=== PATIENT | male | born 1960 | race Caucasian/White ===

== ENCOUNTER → 2018-08-19 | Outpatient (CLI) | payer MEDICAID | END | disposition home or self-care (01) | LOC: PETCFH 11:44 | PROVIDERS: ATTEND Internal Medicine Gastroenterology | DX: K76.89 Other specified diseases of liver (principal); J44.9 Chronic obstructive pulmonary disease, unspecified; Q61.2 Polycystic kidney, adult type | CPT/HCPCS: 78227; A9537 ==

== ENCOUNTER → 2018-11-12 | Outpatient (CLI) | payer MEDICAID | END | disposition home or self-care (01) | LOC: PETCFH 09:42 | PROVIDERS: ATTEND Physician Assistant | DX: K29.70 Gastritis, unspecified, without bleeding (principal); Q61.2 Polycystic kidney, adult type; N28.89 Other specified disorders of kidney and ureter | CPT/HCPCS: 78264; A9541 ==

== ENCOUNTER 2020-01-23 12:29 | Emergency (ER) | payer MEDICAID ==
[~2020-01-23] VITALS: Ht 180.3 cm; Wt 68.3 kg
[~2020-01-23 12:29] MED LIST: ASCO500C2 PO; ASPI-515 PO; BUDE10.2 INH; CHOL200040 PO; DOXY100C15 PO; DOXY100C2 PO; FLUT1AER INH; GUAI200T37 PO; PRED20TA PO; TAMS-11 PO; TIOT4MIS2 INH; ZINC25CA PO
[2020-01-23 12:36] VITALS: BP 135/73
--- NOTE | 2020-01-23 13:00 | NUR ---
PT CAME IN CO OF CHEST PAIN, SOB, AND CHEST TIGHTNESS THAT STARTED FRIDAY. PT SAYS IT GETS WORSE WITH ACTIVITY. PT HAS HX OF COPD BUT DOEST NOT USE HOME O2. EKG COMPLETE. PT CONNECTED TO MONITORING EQUIPMENT. PROVIDER IS BEDSIDE FOR ASSESSMENT
[2020-01-23 13:24] LABS: BASOPHILS # (AUTO) 0.05 x10^3/uL (0-0.1); BASOPHILS % (AUTO) 1 % (0-1); EOSINOPHILS # (AUTO) 0.18 x10^3/uL (0-0.4); EOSINOPHILS % (AUTO) 2 % (1-7); LYMPHOCYTES # (AUTO) 1.34 x10^3/uL (1-3.4); LYMPHOCYTES % (AUTO) 16 % (22-44); MD NO; MEAN CORPUSCULAR HEMOGLOBIN 32.5 pg (27.5-34.5); MEAN CORPUSCULAR HGB CONC 33.8 g/dL (33.2-36.2); MEAN PLATELET VOLUME 9.1 fL (7.4-10.4); MONOCYTES # (AUTO) 0.67 x10^3/uL (0.2-0.8); MONOCYTES % (AUTO) 8 % (2-9); NEUTROPHILS # (AUTO) 6.26 x10^3/uL (1.8-6.8); NEUTROPHILS % (AUTO) 74 % (42-75); PLATELET COUNT 179 x10^3/uL (130-400); RED BLOOD COUNT 4.53 x10^6/uL (4.38-5.82); RED CELL DISTRIBUTION WIDTH 13.7 % (9.4-14.8)
[2020-01-23] MEDS ORDERED: ALBUTEROL/IPRATROPIUM 2.5MG/0.5MG, 3 ML NPPB ONE (13:30)
[2020-01-23 13:38] LABS: ALANINE AMINOTRANSFERASE 17 U/L (12-78); ALBUMIN 3.1 g/dL (3.4-5.0); ANION GAP 5 mmol/L (5-15); CALCIUM 7.9 mg/dL (8.5-10.1); CHLORIDE 111 mmol/L (98-107); CREATININE 1.46 mg/dL (0.7-1.3)
[2020-01-23 13:42] LABS: ALKALINE PHOSPHATASE 41 U/L (45-117); BILIRUBIN,TOTAL 0.5 mg/dL (0.2-1.0); TOTAL PROTEIN 5.8 g/dL (6.4-8.2); TROPONIN I < 0.015 ng/mL (0.000-0.045)
[2020-01-23] MEDS ORDERED: ALBUTEROL/IPRATROPIUM 2.5MG/0.5MG, 3 ML ONE (13:50)
--- NOTE | 2020-01-23 13:59 | NUR ---
PT GETTING BREATHING TREATMENT AT THIS TIME. PT TOLERATING WELL
== END 2020-01-23 14:40 | disposition home or self-care (01) ==
LOC: ED 14:39
DX: J44.1 Chronic obstructive pulmonary disease with (acute) exacerbation (principal); I51.7 Cardiomegaly; R07.89 Other chest pain; I48.91 Unspecified atrial fibrillation
CPT/HCPCS: 36415; 71046; 80053; 83880; 84484; 85025; 93005; 94640; 99285; J7512

== ENCOUNTER 2020-02-04 12:33 | Inpatient (IN) | payer MEDICAID ==
[~2020-02-04] VITALS: Ht 180.3 cm; Wt 78.8 kg
--- NOTE | 2020-02-04 13:27 | NUR ---
PT AMBULATORY WITH STEADY GAIT, TO RM FROM [facility] AT THIS TIME
[2020-02-04] MEDS ORDERED: SODIUM CHLORIDE FLUSH 10ML SYR IVF ONE (13:30)
[2020-02-04] MEDS ORDERED: SODIUM CHLORIDE 0.9% 1,000ML IVBOLUS ONE (13:30)
[2020-02-04] MEDS ORDERED: FAMOTIDINE 20 MG/2 ML IVPush ONE (13:30)
[2020-02-04] MEDS ORDERED: PANTOPRAZOLE 40 MG IV IVPush ONE (13:30)
[2020-02-04] MEDS ORDERED: FAMOTIDINE 20 MG/2 ML ONE (13:36)
[2020-02-04] MEDS ORDERED: PANTOPRAZOLE 40 MG IV ONE (13:38)
[2020-02-04 14:10] LABS: BASOPHILS # (AUTO) 0.03 x10^3/uL (0-0.1); BASOPHILS % (AUTO) 0 % (0-1); EOSINOPHILS # (AUTO) 0.17 x10^3/uL (0-0.4); EOSINOPHILS % (AUTO) 1 % (1-7); LYMPHOCYTES # (AUTO) 1.67 x10^3/uL (1-3.4); LYMPHOCYTES % (AUTO) 13 % (22-44); MD NO; MEAN CORPUSCULAR HGB CONC 33.5 g/dL (33.2-36.2); MEAN CORPUSCULAR VOLUME 95.7 fL (81-97); MEAN PLATELET VOLUME 9.1 fL (7.4-10.4); MONOCYTES # (AUTO) 0.62 x10^3/uL (0.2-0.8); MONOCYTES % (AUTO) 5 % (2-9); NEUTROPHILS % (AUTO) 81 % (42-75); PLATELET COUNT 193 x10^3/uL (130-400); RED BLOOD COUNT 4.72 x10^6/uL (4.38-5.82); RED CELL DISTRIBUTION WIDTH 13.6 % (9.4-14.8)
[2020-02-04 14:16] LABS: ALANINE AMINOTRANSFERASE 18 U/L (12-78); ALBUMIN 3.4 g/dL (3.4-5.0); ANION GAP 8 mmol/L (5-15); CALCIUM 8.1 mg/dL (8.5-10.1); CHLORIDE 111 mmol/L (98-107); CREATININE 1.53 mg/dL (0.7-1.3)
[2020-02-04 14:19] LABS: ALKALINE PHOSPHATASE 40 U/L (45-117); BILIRUBIN,TOTAL 0.5 mg/dL (0.2-1.0); INTERNATIONAL NORMALIZED RATIO 0.95 (0.93-1.1); PROTHROMBIN TIME 9.8 Seconds (9.6-11.5); TOTAL PROTEIN 6.1 g/dL (6.4-8.2)
--- NOTE | 2020-02-04 14:45 | NUR ---
PIV INITIATED, LABS DRAWN. PT MEDICATED PER AUG.
[2020-02-04] MEDS: GUAIFENESIN 200 MG TABLET PO SCH ×2 (17:30→21:44)
[2020-02-04] MEDS ORDERED: hydrALAzine 20 MG/ML, 1ML IVPush PRN (17:30)
[2020-02-04] MEDS ORDERED: morphine SULFATE 10 MG/ML, 1ML IVPush PRN (17:30)
[2020-02-04] MEDS ORDERED: ONDANSETRON 2MG/ML, 2ML IVPush PRN (17:30)
[2020-02-04] MEDS ORDERED: PROMETHAZINE 25 MG/ML, 1ML IM PRN (17:30)
[2020-02-04] MEDS ORDERED: OXYcodone/APAP 5/325MG TABLET PO PRN (17:30)
[2020-02-04] MEDS ORDERED: LABETALOL 5MG/ML, 20ML IVPush PRN (17:30)
[2020-02-04] MEDS ORDERED: NICOTINE 14MG/24 HR PATCH.TD24 TD SCH (17:30)
[2020-02-04] MEDS ORDERED: ACETAMINOPHEN 325 MG TABLET PO PRN (17:30)
--- NOTE | 2020-02-04 18:31 | NUR ---
REPORT TO RECIEVING RN, AWAITING TRANSPORT
[2020-02-04] MEDS ORDERED: ZONI100C29 PO (18:45)
[2020-02-04] MEDS ORDERED: LISI2.5T PO (18:45)
[2020-02-04] MEDS ORDERED: AMLO10TA8 PO (18:45)
[2020-02-04] MEDS ORDERED: MONT10TA11 PO (18:45)
[2020-02-04] MEDS ORDERED: DIVA500T17 PO (18:45)
[2020-02-04] MEDS ORDERED: DILT240C82 PO (18:45)
[2020-02-04] MEDS: SODIUM CHLORIDE 0.9% 1,000 ML IV SCH (18:46)
[2020-02-04 18:57] VITALS: BP 135/72
[2020-02-04] MEDS ORDERED: FLUTICASONE/VILANTEROL 100-25MCG/INH INH SCH (21:00)
[2020-02-04] MEDS ORDERED: TAMSULOSIN 0.4 MG CAP.ER.24H PO SCH (21:00)
[2020-02-04] MEDS ORDERED: TIOTROPIUM BROMIDE 18 MCG/INH INH SCH (21:00)
[2020-02-04] MEDS ORDERED: CHOLECALCIFEROL 1,000 UNIT TABLET PO SCH (21:00)
[2020-02-04] MEDS ORDERED: FLUTICASONE/VILANTEROL 200-25MCG/INH INH SCH ×2 (21:00)
[2020-02-04] MEDS: PANTOPRAZOLE 40 MG IV IVPush SCH (21:44)
[2020-02-05] VITALS (10 sets, daily range): BP systolic 108–135; BP diastolic 60–72
[2020-02-05 03:20] LABS: BASOPHILS # (AUTO) 0.07 x10^3/uL (0-0.1); BASOPHILS % (AUTO) 1 % (0-1); EOSINOPHILS # (AUTO) 0.16 x10^3/uL (0-0.4); EOSINOPHILS % (AUTO) 1 % (1-7); LYMPHOCYTES % (AUTO) 17 % (22-44); MD NO; MEAN CORPUSCULAR HEMOGLOBIN 31.9 pg (27.5-34.5); MEAN CORPUSCULAR HGB CONC 33.3 g/dL (33.2-36.2); MEAN CORPUSCULAR VOLUME 95.9 fL (81-97); MEAN PLATELET VOLUME 8.9 fL (7.4-10.4); MONOCYTES # (AUTO) 0.96 x10^3/uL (0.2-0.8); MONOCYTES % (AUTO) 8 % (2-9); NEUTROPHILS # (AUTO) 8.76 x10^3/uL (1.8-6.8); NEUTROPHILS % (AUTO) 73 % (42-75); PLATELET COUNT 187 x10^3/uL (130-400); RED BLOOD COUNT 4.62 x10^6/uL (4.38-5.82)
[2020-02-05 03:28] LABS: ALANINE AMINOTRANSFERASE 14 U/L (12-78); ALBUMIN 2.8 g/dL (3.4-5.0); ANION GAP 5 mmol/L (5-15); CALCIUM 7.9 mg/dL (8.5-10.1); CHLORIDE 116 mmol/L (98-107); CREATININE 1.35 mg/dL (0.7-1.3)
[2020-02-05 03:30] LABS: ALKALINE PHOSPHATASE 41 U/L (45-117); BILIRUBIN,TOTAL 0.7 mg/dL (0.2-1.0); TOTAL PROTEIN 5.4 g/dL (6.4-8.2)
[2020-02-05] MEDS: GUAIFENESIN 200 MG TABLET PO SCH ×2 (05:12→10:19)
[2020-02-05] MEDS: SODIUM CHLORIDE 0.9% 1,000 ML IV SCH (05:32)
[2020-02-05] MEDS ORDERED: MIDAZOLAM 1 MG/ML, 2ML ONE (07:54)
[2020-02-05] MEDS ORDERED: FENTANYL PF 100 MCG/2ML ONE (07:55)
[2020-02-05] MEDS ORDERED: LABETALOL 5MG/ML, 20ML IV PRN (08:00)
[2020-02-05] MEDS ORDERED: morphine SULFATE 10 MG/ML, 1ML IVPush PRN (08:00)
[2020-02-05] MEDS ORDERED: hydrALAzine 20 MG/ML, 1ML IV PRN (08:00)
[2020-02-05] MEDS ORDERED: PROMETHAZINE 25 MG/ML, 1ML IVPush PRN (08:00)
[2020-02-05] MEDS ORDERED: OXYcodone 5 MG/5 ML ORAL.SOL UDC PO PRN (08:00)
[2020-02-05] MEDS ORDERED: FENTANYL PF 100 MCG/2ML IV PRN (08:00)
[2020-02-05] MEDS ORDERED: ONDANSETRON 2MG/ML, 2ML IVPush PRN (08:00)
[2020-02-05] MEDS ORDERED: CHLORHEXIDINE 15 ML UDC ONE (08:33)
[2020-02-05] MEDS ORDERED: MULTIVITAMINS/MINERALS TABLET PO SCH (09:00)
[2020-02-05] MEDS ORDERED: ZINC SULFATE 220 MG CAPSULE PO SCH (09:00)
[2020-02-05] MEDS ORDERED: THIAMINE 100MG TABLET PO SCH (09:00)
[2020-02-05] MEDS ORDERED: FOLIC ACID 1 MG TABLET PO SCH (09:00)
[2020-02-05] MEDS ORDERED: TIOTROPIUM BROMIDE 18 MCG/INH INH SCH (09:00)
[2020-02-05] MEDS: PANTOPRAZOLE 40 MG IV IVPush SCH (10:18)
[2020-02-05] MEDS ORDERED: LACTATED RINGERS 1,000 ML IV SCH (10:30)
[2020-02-05] MEDS ORDERED: PANT40TA5 PO (14:23)
== END 2020-02-05 15:15 | disposition home or self-care (01) | DRG 327 ==
LOC: ED 16:19 → EDIP 16:49 → 3N 18:27
PROVIDERS: ADMIT Internal Medicine; ATTEND Internal Medicine
PROC: 0D968ZZ Drainage of Stomach, Via Natural or Artificial Opening Endoscopic (ICD-10-PCS; 2020-02-05)
PROC: 0DB68ZX Excision of Stomach, Via Natural or Artificial Opening Endoscopic, Diagnostic (ICD-10-PCS; principal; 2020-02-05 09:00)
DX: K29.81 Duodenitis with bleeding (principal); Q61.3 Polycystic kidney, unspecified; Z20.828 Contact with and (suspected) exposure to other viral communicable diseases; D72.829 Elevated white blood cell count, unspecified; F17.210 Nicotine dependence, cigarettes, uncomplicated; G89.29 Other chronic pain; I12.9 Hypertensive chronic kidney disease with stage 1 through stage 4 chronic kidney disease, or unspecified chronic kidney disease; I48.91 Unspecified atrial fibrillation; J44.9 Chronic obstructive pulmonary disease, unspecified; K31.9 Disease of stomach and duodenum, unspecified; K59.00 Constipation, unspecified; N18.3 Chronic kidney disease, stage 3 (moderate); K76.89 Other specified diseases of liver; Z66 Do not resuscitate; Z79.82 Long term (current) use of aspirin; Z87.11 Personal history of peptic ulcer disease; Z80.9 Family history of malignant neoplasm, unspecified; Z79.899 Other long term (current) drug therapy
CPT/HCPCS: 36415; 96360; 99285; J3490; 74176; 80053; 85014; 85018; 85025; 85610; 85730; 86850; 86900; 87635; 88305; 93005; G0378; J2250; J3010; C9113; J7030; J7120

== ENCOUNTER 2020-07-27 11:26 | Observation (INO) | payer MEDICAID ==
[~2020-07-27] VITALS: Ht 180.3 cm; Wt 65.1 kg
[~2020-07-27 11:26] MED LIST changes: +AMLO-211 PO; -ASPI-515 PO; +ASPI-963 PO; +DILT240C82 PO; +DIVA500T17 PO; +LISI2.5T PO; +MONT10TA17 PO; +PANT40TA6 PO; +ZONI100C29 PO
--- NOTE | 2020-07-27 11:48 | NUR ---
PT C/O CHEST TIGHTNESS AND FATIGUE THAT STARTED YESTERDAY. PAIN 2. PT DENIES SOB OR HEADACHE. PT STATES HE FELT WEAK BEFORE AND HE WAS IN AFIB. PT SELF CONVERTED AT THAT TIME. PT RECENTLY RECEIVED A SHOT IN THE STOMACH BY HIS GI DOCTOR.
[2020-07-27] MEDS ORDERED: ASPIRIN 81 MG TABLET CHEW ONE (11:54)
[2020-07-27] MEDS ORDERED: NITROGLYCERIN SINGLE TAB 0.4 MG SL PRN (12:00)
[2020-07-27] MEDS ORDERED: ASPIRIN 81 MG TABLET CHEW PO ONE (12:00)
[2020-07-27 12:07] LABS: BASOPHILS % (AUTO) 1 % (0-1); EOSINOPHILS % (AUTO) 1 % (1-7); LYMPHOCYTES % (AUTO) 11 % (22-44); MEAN CORPUSCULAR HEMOGLOBIN 31.7 pg (27.5-34.5); MEAN PLATELET VOLUME 8.2 fL (7.4-10.4); MONOCYTES % (AUTO) 7 % (2-9); NEUTROPHILS % (AUTO) 81 % (42-75); PLATELET COUNT 235 x10^3/uL (130-400); RED BLOOD COUNT 4.49 x10^6/uL (4.38-5.82); RED CELL DISTRIBUTION WIDTH 13.1 % (9.4-14.8)
[2020-07-27 12:12] LABS: MD NO
[2020-07-27 12:16] LABS: ALBUMIN 3.8 g/dL (3.4-5.0); ANION GAP 6 mmol/L (5-15); CALCIUM 9.5 mg/dL (8.5-10.1); CHLORIDE 111 mmol/L (98-107)
--- NOTE | 2020-07-27 12:19 | NUR ---
BREAK RN: 20 GAUGE IV STARTED LEFT AC, NAZN, VSS, PATIENT STATES "I DON'T HAVE CHEST PAIN JUST MORE OF A PRESSURE." WARM BLANKET PROVIDED, CALL LIGHT WITHIN REACH, AT BEDSIDE. WAITING FOR TEST RESULTS.
[2020-07-27 12:23] LABS: ALANINE AMINOTRANSFERASE 15 U/L (12-78); ALKALINE PHOSPHATASE 54 U/L (45-117); CREATININE 1.79 mg/dL (0.7-1.3); TOTAL PROTEIN 6.6 g/dL (6.4-8.2); TROPONIN I < 0.015 ng/mL (0.000-0.045)
[2020-07-27] MEDS ORDERED: NITROGLYCERIN SINGLE TAB 0.4 MG SL ONE (12:35)
--- NOTE | 2020-07-27 12:48 | NUR ---
NO CHANGE IN CHEST PRESSURE FROM THE NTG. PAIN 07/26. BP 118/59, PULSE 60.
[2020-07-27] MEDS ORDERED: MAALOX/HYOSCYAMINE/LIDOCAINE 45 ML BTL PO ONE (14:00)
[2020-07-27] MEDS ORDERED: ACETAMINOPHEN 325 MG TABLET PO PRN (14:00)
[2020-07-27] MEDS ORDERED: POLYETHYLENE GLYCOL 17 GM PACKET PO PRN (14:00)
[2020-07-27] MEDS ORDERED: ONDANSETRON 2MG/ML, 2ML IVPush PRN (14:00)
[2020-07-27] MEDS ORDERED: ONDANSETRON ODT 4 MG PO PRN (14:00)
[2020-07-27] MEDS ORDERED: SENNA/DOCUSATE TABLET PO PRN (14:00)
[2020-07-27] MEDS ORDERED: ALBUTEROL HFA 90 MCG/SPRAY INH PRN (14:00)
[2020-07-27 14:08] VITALS: BP 119/66
[2020-07-27] MEDS: HEPARIN 5,000 UNITS/ML, 1ML SQ SCH ×2 (15:16→22:15)
[2020-07-27 18:30] LABS: TROPONIN I < 0.015 ng/mL (0.000-0.045)
[2020-07-27 20:00] VITALS: BP 103/62
[2020-07-27] MEDS ORDERED: ATORVASTATIN 40 MG TABLET PO SCH (21:00)
[2020-07-27] MEDS ORDERED: TAMSULOSIN 0.4 MG CAP.ER.24H PO SCH (21:00)
[2020-07-27] MEDS ORDERED: TIOTROPIUM BROMIDE 18 MCG/INH INH SCH (21:00)
[2020-07-27] MEDS ORDERED: ZONISAMIDE 50 MG CAPSULE PO SCH (21:00)
[2020-07-28 01:00] LABS: TROPONIN I < 0.015 ng/mL (0.000-0.045)
[2020-07-28 02:30] VITALS: BP 101/63
[2020-07-28 05:46] LABS: BASOPHILS % (AUTO) 1 % (0-1); EOSINOPHILS % (AUTO) 2 % (1-7); LYMPHOCYTES % (AUTO) 21 % (22-44); MEAN CORPUSCULAR HEMOGLOBIN 31.5 pg (27.5-34.5); MEAN CORPUSCULAR HGB CONC 33.8 g/dL (33.2-36.2); MEAN PLATELET VOLUME 8.5 fL (7.4-10.4); MONOCYTES % (AUTO) 10 % (2-9); NEUTROPHILS % (AUTO) 66 % (42-75); PLATELET COUNT 224 x10^3/uL (130-400); RED BLOOD COUNT 4.42 x10^6/uL (4.38-5.82); RED CELL DISTRIBUTION WIDTH 12.8 % (9.4-14.8)
[2020-07-28 05:48] LABS: MD NO
[2020-07-28 05:57] LABS: CHLORIDE 112 mmol/L (98-107)
[2020-07-28] MEDS ORDERED: ASPIRIN 81 MG TABLET EC PO SCH (06:00)
[2020-07-28] MEDS ORDERED: OMEPRAZOLE 20 MG CAPSULE.DR PO SCH (06:00)
[2020-07-28 06:05] LABS: ALANINE AMINOTRANSFERASE 16 U/L (12-78); ALBUMIN 3.4 g/dL (3.4-5.0); ALKALINE PHOSPHATASE 47 U/L (45-117); ANION GAP 8 mmol/L (5-15); BILIRUBIN,TOTAL 0.4 mg/dL (0.2-1.0); CALCIUM 8.6 mg/dL (8.5-10.1); CHOL/HDL RATIO 2.5; CHOLESTEROL, TOTAL 170 mg/dL (140-239); CREATININE 1.67 mg/dL (0.7-1.3); HDL CHOL % 40 % (26-37); HDL CHOLESTEROL (DIRECT) 68 mg/dL (40-60); LDL CHOLESTEROL,CALCULATED 80 mg/dL (54-169); LDL/HDL RATIO 1.2 (0.5-3.0); TRIGLYCERIDES 111 mg/dL (50-200); VLDL CHOLESTEROL 22 mg/dL (0-25)
[2020-07-28] MEDS: HEPARIN 5,000 UNITS/ML, 1ML SQ SCH ×2 (06:37→15:00)
[2020-07-28 08:20] VITALS: BP 121/70
[2020-07-28] MEDS ORDERED: DILTIAZEM 240 MG CAP.ER.24H PO SCH (09:00)
[2020-07-28] MEDS ORDERED: DIVALPROEX 500 MG TABLET.DR PO SCH (09:00)
[2020-07-28] MEDS ORDERED: FLUTICASONE/VILANTEROL 100-25MCG/INH INH SCH (09:00)
[2020-07-28] MEDS ORDERED: MONTELUKAST 10 MG TABLET PO SCH (09:00)
[2020-07-28] MEDS ORDERED: REGADENOSON 0.4 MG/5 ML SYRINGE ONE (09:57)
[2020-07-28 10:25] VITALS: BP 122/63
[2020-07-28] MEDS ORDERED: ATOR40TA78 PO (13:49)
[2020-07-28] MEDS ORDERED: ASPI81TA45 PO (13:50)
[2020-07-28 13:56] VITALS: BP 129/65
== END 2020-07-28 16:30 | disposition home or self-care (01) ==
LOC: ED 11:52 → INTOOBSV 12:35 → EDIP 12:35 → 5SO 13:54 → DCLOUNGE 07-28 16:21
PROVIDERS: ADMIT Hospitalist; ATTEND Family Medicine
DX: R07.89 Other chest pain (principal); D72.829 Elevated white blood cell count, unspecified; N18.30 Chronic kidney disease, stage 3 unspecified; I48.0 Paroxysmal atrial fibrillation; N40.0 Benign prostatic hyperplasia without lower urinary tract symptoms; J44.9 Chronic obstructive pulmonary disease, unspecified; Z86.73 Personal history of transient ischemic attack (TIA), and cerebral infarction without residual deficits; R25.1 Tremor, unspecified; D68.69 Other thrombophilia; E78.5 Hyperlipidemia, unspecified; Q61.3 Polycystic kidney, unspecified; F17.200 Nicotine dependence, unspecified, uncomplicated; Z79.899 Other long term (current) drug therapy; Z87.11 Personal history of peptic ulcer disease; Z79.82 Long term (current) use of aspirin; Z87.442 Personal history of urinary calculi
CPT/HCPCS: 36415; 71045; 78452; 80053; 80061; 83036; 83690; 83880; 84145; 84484; 85025; 93005; 93017; 93306; 93356; 96372; 99285; A9502; G0378; J1644; J2785

== ENCOUNTER 2020-08-12 13:48 | Emergency (ER) | payer MEDICAID ==
[~2020-08-12] VITALS: Ht 180.3 cm; Wt 69.6 kg
[~2020-08-12 13:48] MED LIST changes: +ASPI81TA45 PO; +ATOR40TA78 PO
--- NOTE | 2020-08-12 14:22 | NUR ---
PT COMES IN C/O SOB AND "MY HEART FEELS LIKE IT IS BEATING OUT OF MY CHEST. I FELT LIKE I HAD HIGH BLOOD PRESSURE". PT STATES FEELING OF LIGHTHEADEDNESS WHILE WALKING TO TRIAGE. PT HAS HX OF AFIB. MONITORS CONNECTED. WARM BLANKET PROVIDED. CALL LIGHT W/I REACH.
--- NOTE | 2020-08-12 14:24 | NUR ---
PROVIDER AT BEDSIDE FOR ASSESSMENT AND TO DISCUSS PLAN OF CARE
--- NOTE | 2020-08-12 14:25 | NUR ---
PT TO XRAY
--- NOTE | 2020-08-12 14:57 | NUR ---
PT RESTING ON GURNEY. STATE "A LITTLE BIT UNCOMFORTABLE IN MY MID STOMACH". VSS. NAD. CALL LIGHT W/IN REACH. WILL CONTINUE TO MONITOR
[2020-08-12 14:59] LABS: BASOPHILS % (AUTO) 1 % (0-1); EOSINOPHILS % (AUTO) 1 % (1-7); LYMPHOCYTES % (AUTO) 15 % (22-44); MEAN CORPUSCULAR HEMOGLOBIN 31.8 pg (27.5-34.5); MEAN CORPUSCULAR HGB CONC 33.9 g/dL (33.2-36.2); MEAN PLATELET VOLUME 8.2 fL (7.4-10.4); MONOCYTES % (AUTO) 8 % (2-9); NEUTROPHILS % (AUTO) 75 % (42-75); PLATELET COUNT 248 x10^3/uL (130-400); RED BLOOD COUNT 4.31 x10^6/uL (4.38-5.82)
[2020-08-12 15:02] LABS: MD NO
[2020-08-12 15:10] LABS: ALANINE AMINOTRANSFERASE 26 U/L (12-78); ALBUMIN 3.5 g/dL (3.4-5.0); ANION GAP 8 mmol/L (5-15); CALCIUM 8.3 mg/dL (8.5-10.1); CHLORIDE 113 mmol/L (98-107); SALICYLATE LEVEL 4.9 mg/dL (2.8-20.0)
[2020-08-12 15:22] LABS: ALKALINE PHOSPHATASE 55 U/L (45-117); BILIRUBIN,TOTAL 0.4 mg/dL (0.2-1.0); CREATININE 1.81 mg/dL (0.7-1.3); TOTAL PROTEIN 6.3 g/dL (6.4-8.2); TROPONIN I < 0.015 ng/mL (0.000-0.045)
--- NOTE | 2020-08-12 15:27 | NUR ---
PREFERRED PHARMACY CONFIRMED W/PT.
--- NOTE | 2020-08-12 16:29 | NUR ---
PT AMBULATED TO DC W/STEADY GAIT. PT ENCOURAGED TO FOLLOWUP DISCUSSED. PT EDUCATED TO RETURN TO THE ED W/NEW OR WORSENING SYMPTOMS.
[2020-08-12 16:30] VITALS: BP 118/59
== END 2020-08-12 16:32 | disposition home or self-care (01) ==
LOC: ED 14:16
DX: R06.00 Dyspnea, unspecified (principal); R00.2 Palpitations; I49.3 Ventricular premature depolarization; R07.9 Chest pain, unspecified; I48.91 Unspecified atrial fibrillation; I10 Essential (primary) hypertension; E11.9 Type 2 diabetes mellitus without complications; J44.9 Chronic obstructive pulmonary disease, unspecified; E78.5 Hyperlipidemia, unspecified
CPT/HCPCS: 36415; 71046; 80053; 80329; 83735; 83880; 84443; 84484; 85025; 93005; 99285; G0480